=== PATIENT | female | born 1995 | race African-American/Black ===

== ENCOUNTER 2021-03-14 21:59 | Emergency (ER) | payer OTHER ==
[~2021-03-14] VITALS: Ht 157.5 cm; Wt 59.0 kg
== END 2021-03-15 03:28 | disposition home or self-care (01) ==
LOC: ER 21:59
DX: S82.52XA Displaced fracture of medial malleolus of left tibia, initial encounter for closed fracture (principal); W05.1XXA Fall from non-moving nonmotorized scooter, initial encounter; Y93.I9 Activity, other involving external motion; Y92.413 State road as the place of occurrence of the external cause; Y99.8 Other external cause status